=== PATIENT | female | born 1950 | race American Indian/Alaskan Native ===

== ENCOUNTER 2017-10-07 06:18 | Day surgery (SDC) | payer OTHER ==
[2017-10-07] MEDS ORDERED: NACL BACTERIOSTATIC INFILTRATI ONE (07:09)
[2017-10-07] MEDS ORDERED: XYLOCAINE MPF 2% ONE (07:26)
[2017-10-07] MEDS ORDERED: DIPRIVAN 10 MG/ML IV ONE (07:27)
[2017-10-07] MEDS ORDERED: DILAUDID ONE (07:27)
[2017-10-07] MEDS ORDERED: NEO SYNEPHRINE ONE (07:30)
[2017-10-07] MEDS ORDERED: ePHEDrine 50 MG/5 ML-0.9% NACL IV ONE ×2 (07:32→09:03)
[2017-10-07] MEDS ORDERED: ROBINUL ONE (07:32)
[2017-10-07] MEDS ORDERED: DECADRON ONE (07:32)
--- NOTE | 2017-10-07 07:34 | Anesthesia Consultation ---
Anesthesia Consult and Med Hx Date of service: 10/07/17 - Airway Anesthetic Teeth Evaluation: Good ROM Head & Neck: Adequate Mental/Hyoid Distance: Adequate Mallampati Class: Class II Intubation Access Assessment: Good - Pulmonary Exam CTA: Yes - Cardiac Exam Cardiac Exam: No Murmur - Pre-Operative Health Status ASA Pre-Surgery Classification: ASA2 Proposed Anesthetic Plan: General - Pulmonary Hx Smoking: No Hx Sleep Apnea: Yes (DX SLEEP APNEA WITH CPAP USE.) - Cardiovascular System Hx Hypertension: Yes (X 6YRS) - Central Nervous System Hx Back Pain: Yes (FROM STONE) Hx Psychiatric Problems: No - Gastrointestinal Hx Gastroesophageal Reflux Disease: Yes - Endocrine Hx Renal Disease: No Hx Insulin Dependent Diabetes: No - Other Systems Hx Cancer: No Hx Obesity: Yes (morbid obesity, BMI 48)
--- NOTE | 2017-10-07 07:35 | Anesthesia Day of Surgery ---
Anesthesia Day of Surgery - Day of Surgery Patient Examined: Yes Patient H&P Reviewed: Yes Patient is NPO: Yes
[2017-10-07] MEDS: LACTATED RINGERS 1,000 ML IV SCH ×2 (07:43→11:25)
[2017-10-07] MEDS ORDERED: VERSED IV NR (08:00)
[2017-10-07] MEDS ORDERED: PEPCID PO NR (08:00)
[2017-10-07] MEDS ORDERED: ANCEF/STERILE WATER 2 GM/20 ML IV NR (08:17)
[2017-10-07] MEDS ORDERED: ZOFRAN ONE (08:57)
[2017-10-07] MEDS ORDERED: TRANSDERM-SCOP TD ONE (11:19)
[2017-10-07] MEDS ORDERED: PEPCID IV ONE (11:19)
[2017-10-07] MEDS ORDERED: REGLAN IV ONE (11:20)
[2017-10-07 12:17] VITALS: BP 135/74
--- NOTE | 2017-10-07 12:59 | Short Stay Summary ---
Short Stay Documentation Date of service: 10/07/17 - History H&P: obtained from office - Allergies and Medications Current Medications: Allergies No Known Allergies Allergy (Verified 02/18/15 10:41) Home Medications Medication Instructions Recorded Confirmed Last Taken Type Ezetimibe/Simvastatin (Nf) 10 - 40 mg PO DAILY 02/18/15 09/28/17 10/06/17 History [Vytorin 10-40 mg (Nf)] Lisinopril/Hydrochlorothiazide 1 tab PO DAILY 02/18/15 09/28/17 10/06/17 History [Lisinopril-Hctz 20-12.5 mg Tab] Restasis 0.05% 2 drops OD BID 02/18/15 10/07/17 10/06/17 History Acetaminophen [Tylenol Arthritis] 1,000 mg PO PRN PRN 09/28/17 10/07/17 History Ibuprofen [Motrin] 800 mg PO Q8HR PRN 09/28/17 10/07/17 09/27/17 History Progesterone, Micronized 100 mg PO DAILY 09/28/17 09/28/17 10/06/17 History [Progesterone] Oxybutynin [Ditropan] 5 mg PO DAILY 10/07/17 10/07/17 10/02/17 History oxyCODONE /ACETAMINOPHEN [Percocet 1 tab PO TID PRN 10/07/17 10/07/17 10/06/17 History 5/325 mg] - Brief post op/procedure progress note Date of procedure: 10/07/17 Pre-op diagnosis: left renal mult stone, left up 9, Post-op diagnosis: same Procedure: left renal eswl Anesthesia: GETA Findings: good vis frag Surgeon: CHE WELLS Estimated blood loss: minimal Pathology: none Specimen disposition: to lab Condition: stable - Hospital course Hospital course: or pacu home - Disposition Condition at discharge: Good Disposition: DC-01 TO HOME OR SELFCARE Short Stay Discharge Plan Activity: advance as tolerated Diet: advance as tolerated Additional Instructions: STRAIN ALL URINE. INCREASE ORAL FLUIDS. NO STRAINING. CALL OFFICE TO VERIFY RETURN DATE AND TIME FOR FOLLOWUP WITH DR. Ama WELLS Follow up with: CHE WELLS MD [Staff Physician] - 7 Days Forms: Outpatient Surgery DC Inst.
--- NOTE | 2017-10-17 19:04 | Operative Report ---
PREOPERATIVE DIAGNOSIS: Left renal stones, large lower pole burden, mid pole 8-9 mm, upper pole 8-9 mm. POSTOPERATIVE DIAGNOSIS: Left renal stones, large lower pole burden, mid pole 8-9 mm, upper pole 8-9 mm. PROCEDURE: Left renal ESWL. SURGEON: Derrick Matos MD ANESTHESIA: General. SPECIMENS: None. ESTIMATED BLOOD LOSS: Minimal. PATHOLOGY: None. CONDITION: Stable. IMPLANTS: None. COMPLICATIONS: None. CLINICAL INDICATIONS: Counseled RCBA, antibiotics, SCDs. Discussed option of PNL, percutaneous nephrolithotomy first versus second versus attempted fragmentation of upper pole and the stone, which was away from the lower pole with possible fragmentation assessment as well as dropping to the lower pole versus passing. The patient wanted to proceed with this course, did not want to have any ____ procedure soon, but wanted to go forward with working on this given her past recent hysterectomy. Understood the standard for different sizes, antibiotics, and SCDs. DESCRIPTION OF PROCEDURE: The patient transferred to OR suite in supine position, anesthesia. She was not placed in dorsal lithotomy. She was actually just left in supine position. Biplanar fluoroscopy was easy to target the upper pole stone. A total of 2500 shocks were delivered after anesthesia with intermittent repositioning as necessary. At the end of the procedure, there was significant decreased density of the upper pole 8-9 mm stone fragment. The patient was awakened and transferred to the PACU in good and stable condition. PLAN: Stage for multiple treatments, ESWL plus or minus percutaneous nephrolithotomy planned. JOB# [id number] ATS/NTS
== END 2017-10-07 11:59 | disposition home or self-care (01) ==
LOC: OR 06:18
PROVIDERS: ATTEND Urology
DX: N20.0 Calculus of kidney (principal); I10 Essential (primary) hypertension; M19.90 Unspecified osteoarthritis, unspecified site; E78.00 Pure hypercholesterolemia, unspecified; G47.30 Sleep apnea, unspecified; K21.9 Gastro-esophageal reflux disease without esophagitis; Z79.899 Other long term (current) drug therapy; Z99.89 Dependence on other enabling machines and devices; Z90.710 Acquired absence of both cervix and uterus; Z90.49 Acquired absence of other specified parts of digestive tract; Z98.890 Other specified postprocedural states; Z80.8 Family history of malignant neoplasm of other organs or systems
CPT/HCPCS: 50590; J0690; J1100; J1170; J2250; J2370; J2405; J2704; J2765; J7120